=== PATIENT | male | born 1995 | race African-American/Black ===

== ENCOUNTER 2022-04-07 21:58 | Emergency (ER) | payer MEDICAID, OTHER ==
[~2022-04-07] VITALS: Ht 177.8 cm; Wt 80.0 kg
[2022-04-07] MEDS ORDERED: AMOXICILLIN/POTASSIUM CLAVULANATE 875/125MG TAB PO ONE (23:00)
[2022-04-07 23:16] VITALS: BP 147/84
[2022-04-08] MEDS ORDERED: AMOX1TAB16 MT (01:15)
== END 2022-04-08 01:37 ==
LOC: ER 21:58
DX: S61.411A Laceration without foreign body of right hand, initial encounter (principal); W54.0XXA Bitten by dog, initial encounter; Y93.89 Activity, other specified; Y92.89 Other specified places as the place of occurrence of the external cause; Y99.8 Other external cause status
CPT/HCPCS: 12001; 73130; 99283; Z7610